=== PATIENT | female | born 2000 | race Caucasian/White ===

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

== ENCOUNTER 2018-07-13 15:50 | Inpatient (IN) | END 2018-07-15 23:23 | disposition home or self-care (01) | DRG 781 ==

== ENCOUNTER 2018-09-14 06:10 | Inpatient (IN) | END 2018-09-16 14:45 | disposition home or self-care (01) | DRG 807 ==

== ENCOUNTER 2018-10-15 21:58 | Emergency (ER) | END 2018-10-15 23:05 | disposition left against medical advice (07) ==